=== PATIENT | male | born 1945 | race Caucasian/White ===

== ENCOUNTER 2016-08-15 06:46 | Inpatient (IN) | payer BC ==
[2016-08-14 13:16] VITALS: BMI 31.8
[~2016-08-15] VITALS: Ht 172.7 cm; Wt 96.3 kg
[2016-08-15] VITALS (30 sets, daily range): BP systolic 130–187; BP diastolic 49–89; PULSE 65–92; RESP 10–18; Ht 172.7 cm; Wt 96.3 kg
[2016-08-15] MEDS ORDERED: DEXAMETHASONE 1 MG TAB PO ONE (07:30)
[2016-08-15] MEDS ORDERED: oxyCODONE (CR) 10 MG TAB [oxyCONTIN] PO ONE (07:30)
[2016-08-15] MEDS ORDERED: GABAPENTIN 300 MG CAP PO ONE (07:30)
[2016-08-15] MEDS ORDERED: CEFAZOLIN 2 GM/50 ML (PMX) 50 ML IVPB ONE (07:30)
[2016-08-15] MEDS ORDERED: METF1000 PO (07:30)
[2016-08-15] MEDS ORDERED: BUPIVACAINE 0.5% (SDV) 30 ML, morphine SULFATE (PF) 8 MG, EPINEPHrine 0.3 MG, KETOROLAC... IRR SCH ×7 (07:30)
[2016-08-15] MEDS ORDERED: traMADol 50 MG TAB PO ONE (07:30)
[2016-08-15] MEDS ORDERED: TRANEXAMIC ACID 1,000 MG in SOD CHLORIDE 0.9% 100 ML IVPB ONE (07:30)
[2016-08-15] MEDS ORDERED: LOSA25TA5 PO (07:31)
[2016-08-15] MEDS ORDERED: GLIP5TAB13 PO (07:32)
[2016-08-15] MEDS ORDERED: ATOR40TA68 PO (07:33)
[2016-08-15] MEDS ORDERED: DOXY100T20 PO (07:34)
[2016-08-15] MEDS ORDERED: DEXAMETHASONE 4 MG/ML 1 ML INJ ONE (07:59)
[2016-08-15] MEDS ORDERED: GLYCOPYRROLATE 0.4 MG INJ ONE (07:59)
[2016-08-15] MEDS ORDERED: FENTAnyl 50 MCG/ML VIAL ONE (07:59)
[2016-08-15] MEDS ORDERED: CEFAZOLIN 1 GM INJ ONE (07:59)
[2016-08-15] MEDS ORDERED: ONDANSETRON 4 MG INJ ONE (07:59)
[2016-08-15] MEDS ORDERED: ROCURONIUM 50 MG INJ ONE (07:59)
[2016-08-15] MEDS ORDERED: NEOSTIGMINE 3 MG/3 ML SYRINGE ONE (07:59)
[2016-08-15] MEDS ORDERED: ROPIVACAINE 0.5 % 30 ML VIAL ONE (07:59)
[2016-08-15] MEDS ORDERED: MIDAZOLAM 1 MG/ML 2 ML INJ ONE (07:59)
[2016-08-15] MEDS ORDERED: PROPOFOL 100 ML ONE (07:59)
[2016-08-15] MEDS ORDERED: POLYMYXIN/BACITRACIN 1L IRRIG ONE (08:53)
--- NOTE | 2016-08-15 08:57 | HPN ---
Date/Time of Note Date/Time of Note DATE: 08/15/16 TIME: 08:57 Interval H&P Admission Note Pt. seen H&P reviewed: No system changes PRESTON PANIAGUA MD Aug 15, 2016 08:57
[2016-08-15] MEDS ORDERED: hydrALAzine 20 MG INJ ONE (09:38)
[2016-08-15] MEDS ORDERED: CA CHLORIDE 10% 10 ML SYRINGE ONE (09:57)
[2016-08-15] MEDS ORDERED: BUPIVACAINE 0.5%/EPI (SDV) 30 ML INJ ONE (09:57)
[2016-08-15] MEDS ORDERED: THROMBIN 5000 UNIT VIAL ONE (09:57)
[2016-08-15] MEDS ORDERED: HYDROmorphONE (0.2 MG/ML) 10ML SYG IV PRN ×3 (10:00)
[2016-08-15] MEDS ORDERED: MIDAZOLAM 1 MG/ML 2 ML INJ IV PRN (10:00)
[2016-08-15] MEDS ORDERED: hydrALAzine 20 MG INJ IV PRN (10:00)
[2016-08-15] MEDS ORDERED: TRIMETHOBENZAMIDE 100 MG/ML VIAL IM PRN (10:00)
[2016-08-15] MEDS ORDERED: MEPERIDINE 25 MG INJ IV PRN (10:00)
[2016-08-15] MEDS ORDERED: EPHEDrine SULFATE 50 MG/5 ML SYG IV PRN (10:00)
[2016-08-15] MEDS ORDERED: DIPHENHYDRAMINE 50 MG INJ IV PRN ×2 (10:00→11:30)
[2016-08-15] MEDS ORDERED: ONDANSETRON 4 MG INJ IV PRN ×2 (10:00→11:30)
[2016-08-15] MEDS ORDERED: FENTAnyl 50 MCG/ML VIAL IV PRN ×3 (10:00)
[2016-08-15] MEDS ORDERED: LABETALOL HCL 20MG INJ IV PRN (10:00)
--- NOTE | 2016-08-15 11:11 | PDOCDIS ---
Discharge Instructions DIAGNOSIS Discharge Diagnosis: Right shoulder arthritis CONDITION Patient Condition: Good HOME CARE INSTRUCTIONS: Diet Instructions: Regular ACTIVITY: Activity Restrictions: Slowly Increase Activity Keep Limb Elevated Bathing Restrictions: Shower FOLLOW UP/APPOINTMENTS Appointments Two weeks SCHOOL/WORK RELEASE May return to School/Work with: With Restrictions School/Work Release Comment: five pound table top usage for six weeks PRESTON PANIAGUA MD Aug 15, 2016 11:11
[2016-08-15] MEDS ORDERED: TRANEXAMIC ACID 1,000 MG in SOD CHLORIDE 0.9% 100 ML IV ONE (11:30)
[2016-08-15] MEDS ORDERED: ACETAMINOPHEN 500 MG TAB PO PRN (11:30)
[2016-08-15] MEDS ORDERED: morphine 4 MG/ML VIAL IV PRN (11:30)
[2016-08-15] MEDS ORDERED: MAGNESIUM HYDROXIDE 30ML CUP PO PRN (11:30)
[2016-08-15] MEDS ORDERED: OXYCODONE/ACETAMINOPHEN (5/325) TAB PO PRN ×2 (11:30)
[2016-08-15] MEDS ORDERED: ZOLPIDEM 5 MG TAB PO PRN (11:30)
[2016-08-15] MEDS ORDERED: morphine 2 MG INJ IV PRN (11:30)
[2016-08-15] MEDS ORDERED: KETOROLAC 15 MG INJ IV PRN (11:30)
--- NOTE | 2016-08-15 11:35 | OPR ---
DATE OF OPERATION: 08/15/2016 ATTENDING SURGEON: Preston Chen MD RADIATION CONTROL SPECIALIST: None. PREOPERATIVE DIAGNOSIS: Right shoulder secondary osteoarthritis. POSTOPERATIVE DIAGNOSES: 1. Right shoulder secondary osteoarthritis. 2. Right shoulder massive unrepairable rotator cuff tear. OPERATION PERFORMED: Right reverse total shoulder. DESCRIPTION OF PROCEDURE: Following administration of general endotracheal anesthesia, the patient was placed in the beach chair position. The right upper extremity was prepped and draped in the usu al sterile fashion. An extended deltopectoral incision was then undertaken exposing the conjoined t endon, retracting it medially. Subscapularis was detached. The superior rotator cuff was completel y deficient and eroded and retracted. The biceps was released. The subscapularis was completely re leased. Severe arthritic changes were noted. The osteotomy was then performed after peripheral ost eophytes were removed. The head was then retracted and peripheral osteophytes were removed from mehreen und the glenoid exposing the capsule. The entry was then performed into the canal. A standard DePu y glenoid component was then inserted. The component was then inserted with solid fixation and 4 pe ripheral screws. The glenosphere was then applied which was a 36 mm glenosphere, also with solid fixation. The shaft was then exposed, reamed up to the 12 mm size. A 12 mm component with a 3 mm liner was se en to be the best fit. The actual implants were then placed solidly, thoroughly irrigated, taken th rough a full range of motion with no instability. The joint was irrigated once again, closed in layers. Prineo dressing was then applied in the end f ollowed by application of a sling. The patient was awakened and transported to recovery in a stable condition. Estimated blood loss for this procedure was 100 mL. Postoperative x-rays will be obtai ramiro in the recovery room. Dictated By: PRESTON BERG/ELSY Conf#: [id number] DID#: [id number]
--- NOTE | 2016-08-15 12:26 | RADRPT ---
PROCEDURE: CR right shoulder CLINICAL INDICATION: Shoulder pain TECHNIQUE: 2 views performed COMPARISON: No comparison available. FINDINGS: There is a postoperative right shoulder reverse arthroplasty. There is no dislocation. There is no l oosening of the prothesis. There is otherwise normal mineralization, architecture and alignment.No fracture or osseous lesion i s identified. The acromioclavicular joint is unremarkable. There are postoperative soft tissue [place] es. IMPRESSION: Postoperative right shoulder reverse arthroplasty Postoperative soft tissue changes. RPTAT: RICNH .Efrem Mccollum MD, MD Date Time Electronically viewed and signed by .Efrem Mccollum MD, on 08/15/2016 12:26 .B/
[2016-08-15] MEDS ORDERED: GLUCOSE GEL 15 GRAM TUBE BUCCAL PRN (13:30)
[2016-08-15] MEDS ORDERED: GLUCOSE GEL 15 GRAM TUBE PO PRN ×2 (13:30)
[2016-08-15] MEDS ORDERED: DEXTROSE 50% 50 ML SYRINGE IV PRN ×2 (13:30)
[2016-08-15] MEDS ORDERED: GLUCAGON 1 MG INJ IM PRN (13:30)
[2016-08-15] MEDS: DEXAMETHASONE 2 MG TAB PO SCH ×3 (16:15→23:22)
[2016-08-15] MEDS: CEFAZOLIN 1 GM/50 ML (PMX) 50 ML IVPB SCH ×2 (16:15→22:40)
[2016-08-15] MEDS: metFORMIN 500 MG TAB PO SCH (19:01)
[2016-08-15] MEDS ORDERED: GABAPENTIN 300 MG CAP PO SCH (21:00)
[2016-08-15] MEDS ORDERED: ATORVASTATIN 40 MG TAB PO SCH (21:00)
[2016-08-15] MEDS: SENNA/DOCUSATE NA (8.6MG/50MG) TAB PO SCH (21:09)
[2016-08-16] VITALS: BP 115/59; RESP 18
[2016-08-16] MEDS: DEXAMETHASONE 2 MG TAB PO SCH (05:53)
[2016-08-16] MEDS: CEFAZOLIN 1 GM/50 ML (PMX) 50 ML IVPB SCH (05:53)
[2016-08-16 06:26] VITALS: BP 134/64; PULSE 73; RESP 18
[2016-08-16] MEDS ORDERED: DEXAMETHASONE 2 MG TAB PO ONE ×2 (06:27→12:00)
--- NOTE | 2016-08-16 06:54 | PN ---
Date/Time of Note Date/Time of Note DATE: 08/16/16 TIME: 06:53 24 hour Interval Summary Patient is awake and alert with minimal pain. Physical exam: His wound is clean and dry. He is neurologically intact. There are no signs of DVT. There is no lymphedema. Impression: Status post reverse total shoulder with good outcome thus far. Plan: Patient will have occupational therapy this morning and be discharged after that. Physical Exam Vital Signs Date Time Temp Pulse Resp B/P Pulse Ox O2 Delivery O2 Flow Rate FiO2 08/16/16 06:26 98.7 73 18 134/64 98 08/15/16 18:30 Room Air 08/15/16 12:05 2.0 Intake and Output 08/15/16 08/15/16 08/16/16 15:00 23:00 07:00 Intake Total 1700 ml 50 ml 50 ml Output Total 30 ml Balance 1670 ml 50 ml 50 ml VTE Prophylaxis VTE Prophylaxis Intervention: anti-embolic stocking Lines/Catheters IV Catheter Type: Saline Lock Chaney in Place: No Results Results 24hrs Laboratory Tests Test 08/15/16 08:10 08/15/16 18:16 Bedside Glucose 193 265 H Medications Medications Home Meds Reported Medications Doxycycline Hyclate* (Doxycycline Hyclate*) 100 Mg Tablet.dr, 100 MG PO BID, TAB 08/15/16 Atorvastatin* (Atorvastatin*) 40 Mg Tablet, 40 MG PO QHS, #30 TAB 08/15/16 Glipizide* (Glipizide*) 5 Mg Tablet, 5 MG PO AC BREAKFAST, TAB 08/15/16 Losartan Potassium* (Losartan Potassium*) 25 Mg Tablet, 25 MG PO DAILY, TAB 08/15/16 Metformin Hcl* (Metformin Hcl*) 1,000 Mg Tablet, 1000 MG PO WITH BREAKFAST DINNE , #30 TAB 08/15/16 PRESTON PANIAGUA MD Aug 16, 2016 06:54
--- NOTE | 2016-08-16 06:55 | DS ---
Date/Time of Note Date/Time of Note DATE: 08/16/16 TIME: 06:54 Discharge Summary Admission/Discharge Info Admit Date/Time Aug 15, 2016 at 06:46 Discharge Date/Time August 16, 2016 Final Diagnosis Right shoulder rotator cuff tear arthropathy Patient Condition: Good Procedures Right reverse total shoulder replacement Hx of Present Illness Pain and stiffness in the right shoulder for several years Hospital Course Patient was admitted, underwent surgery. Postop day 1 he was afebrile wound was clean and dry discharged after occupational therapy Home Meds Reported Medications Doxycycline Hyclate* (Doxycycline Hyclate*) 100 Mg Tablet.dr, 100 MG PO BID, TAB 08/15/16 Atorvastatin* (Atorvastatin*) 40 Mg Tablet, 40 MG PO QHS, #30 TAB 08/15/16 Glipizide* (Glipizide*) 5 Mg Tablet, 5 MG PO AC BREAKFAST, TAB 08/15/16 Losartan Potassium* (Losartan Potassium*) 25 Mg Tablet, 25 MG PO DAILY, TAB 08/15/16 Metformin Hcl* (Metformin Hcl*) 1,000 Mg Tablet, 1000 MG PO WITH BREAKFAST DINNE , #30 TAB 08/15/16 Pending Labs Laboratory Tests Test 08/15/16 08:10 08/15/16 18:16 Bedside Glucose 193mg/dL (70-220) 265mg/dL (70-220) PRETSON PANIAGUA MD Aug 16, 2016 06:54
[2016-08-16] MEDS ORDERED: glipiZIDE 5 MG TAB PO SCH (07:00)
[2016-08-16 08:05] VITALS: BP 131/76; RESP 18
[2016-08-16] MEDS: SENNA/DOCUSATE NA (8.6MG/50MG) TAB PO SCH (08:50)
[2016-08-16] MEDS: metFORMIN 500 MG TAB PO SCH (08:50)
[2016-08-16] MEDS ORDERED: ASPIRIN 81 MG TAB PO SCH (09:00)
[2016-08-16] MEDS ORDERED: LOSARTAN 25 MG TAB PO SCH (09:00)
== END 2016-08-16 11:15 | disposition home or self-care (01) | DRG 483 ==
LOC: REC 06:46 → MS1 16:40
PROVIDERS: ADMIT Orthopaedic Surgery; ATTEND Orthopaedic Surgery
PROC: 0RRJ00Z Replacement of Right Shoulder Joint with Reverse Ball and Socket Synthetic Substitute, Open Approach (ICD-10-PCS; principal; 2016-08-15 09:30)
DX: M19.011 Primary osteoarthritis, right shoulder (principal); I10 Essential (primary) hypertension; M75.121 Complete rotator cuff tear or rupture of right shoulder, not specified as traumatic; E11.9 Type 2 diabetes mellitus without complications; K21.9 Gastro-esophageal reflux disease without esophagitis; E78.5 Hyperlipidemia, unspecified; I25.10 Atherosclerotic heart disease of native coronary artery without angina pectoris; I25.2 Old myocardial infarction; Z79.84 Long term (current) use of oral hypoglycemic drugs; Z95.5 Presence of coronary angioplasty implant and graft; Z87.891 Personal history of nicotine dependence
CPT/HCPCS: 82962; 86999; 97166; Z7610; C1776; J0171; J0360; J0690; J0735; J1100; J1885; J2250; J2274; J2405; J2710; J2795; J3010; J3370